=== PATIENT | female | born 1945 | race Caucasian/White ===

== ENCOUNTER → 2025-01-25 | Outpatient (CLI) | payer MEDICARE, OTHER ==
--- NOTE | 2025-01-25 14:41 | US ---
EXAMINATION TYPE: US kidneys/renal and bladder DATE OF EXAM: 01/25/2025 COMPARISON: NONE CLINICAL INDICATION: Female, 79 years old with history of N28.9 RENAL INSUFFICIENCY; Abnormal labs TECHNIQUE: Grayscale imaging of the bilateral kidneys and urinary bladder: FINDINGS: EXAM MEASUREMENTS: Right Kidney: 9.4 x 4.5 x 4.3 cm Left Kidney: 9.5 x 4.1 x 4.4 cm Right Kidney: No evidence of hydro, limited views due to overlying bowel content Left Kidney: No evidence of hydro, limited views due to overlying bowel content Bladder: wnl Bilateral Jets seen: No There is no evidence for hydronephrosis at this point in time. No nephrolithiasis is seen. No akash s are identified. The urinary bladder is anechoic. IMPRESSION: Suboptimal study but No hydronephrosis is seen bilaterally. [facility], , 01/25/2025 2:39 PM
--- NOTE | 2025-01-26 07:54 | BD ---
EXAMINATION TYPE: Axial Bone Density DATE OF EXAM: 01/25/2025 CLINICAL HISTORY: 79 years old Female. ICD-10 CODE: Z78.0 ASYMP [place] , Additional History: Height: 58.8 Weight: 169 FRAX RISK QUESTIONS: Glucocorticoids (More than 3mos): yes (Ex: prednisone, prednisolone, methylprednisolone, dexamethasone, and hydrocortisone). History of Fracture in Adulthood: yes Secondary Osteoporosis: RISK FACTORS HISTORY OF: MEDICATIONS: EXAM MEASUREMENTS: Bone mineral densitometry was performed using the [employer] System. Bone mineral density as measured about the Lumbar spine is: ----- L1-L4(G/cm2): 1.104 T Score Values are as follows: ----- L1: -1.3 ----- L2: -0.9 ----- L3: -0.7 ----- L4: -0.2 ----- L1-L4: -0.6 Z Score Values are as follows: ----- L1: 0.1 ----- L2: 0.5 ----- L3: 0.7 ----- L4: 1.3 ----- L1-L4: 0.8 First dexa at [facility] Bone mineral density about the R hip (g/cm2): 0.898 Bone mineral density about the L hip (g/cm2): 0.920 T Score values are as follows: -----R Neck: -1.2 -----L Neck: -1.4 -----R Total: -0.9 -----L Total: -0.7 Z Score values are as follows: -----R Neck: 0.7 -----L Neck: 0.5 -----R Total: 0.9 -----L Total: 1.0 First dexa at [facility] FRAX%s: The graph provided illustrates a 26.5% chance for a major osteoporotic fx and a 6.2% chance f or the hips probability for fx in 10 years time. IMPRESSION: Normal (Values between +1 and -1 indicate normal bone mass). Consider repeating this study in 5 year s or sooner if there is some new clinical indication. NOTE: T-SCORE=SD OF THE YOUNG ADULT MEAN. [facility], , 01/26/2025 7:52 AM
== END | disposition home or self-care (01) ==
LOC: RADUSWWP 13:56
PROVIDERS: ATTEND Internal Medicine
DX: Z13.820 Encounter for screening for osteoporosis (principal); N28.9 Disorder of kidney and ureter, unspecified; M85.89 Other specified disorders of bone density and structure, multiple sites; Z78.0 Asymptomatic menopausal state
CPT/HCPCS: 76770; 77080

== ENCOUNTER → 2025-04-07 | Outpatient (CLI) | payer MEDICARE, OTHER ==
--- NOTE | 2025-04-08 08:33 | XR ---
EXAMINATION TYPE: XR chest 2V DATE OF EXAM: 04/07/2025 3:54 PM COMPARISON: 03/22/2025 CLINICAL INDICATION: Female, 79 years old with history of R06.89 OTHER ABNORMALITIES OF BREATHING, , TECHNIQUE: PA and lateral views FINDINGS: Heart mildly enlarged. Increased interstitial opacities bilaterally. No sizable pleural effusion. IMPRESSION: Increased bilateral interstitial opacities. Correlate for atypical pneumonias versus interstitial pul monary edema. [facility], Workstation: [facility], 04/08/2025 8:31 AM
== END | disposition home or self-care (01) ==
LOC: RADXRMAIN 14:37
PROVIDERS: ATTEND Internal Medicine
DX: J84.89 Other specified interstitial pulmonary diseases (principal)
CPT/HCPCS: 71046